=== PATIENT | male | born 1965 | race African-American/Black ===

== ENCOUNTER 2019-05-12 21:02 | Inpatient (IN) | payer BC ==
[~2019-05-12] VITALS: Ht 185.4 cm; Wt 108.9 kg
[2019-05-12 21:05] VITALS: BP_SYST 150
--- NOTE | 2019-05-12 21:13 | NUR ---
Placed in room 1 . Placed on integration project manager, blood pressure machine and pulse oximeter. To gown for exam. Side rails up. Report given to PENG Hwang.
--- NOTE | 2019-05-12 21:15 | NUR ---
patient arrived AOx4 with c/o palpitation since 2pm. patient stated he had similar problem 15 years ago but the work up was normal. patient states he feels it most while laying down and while walking. patient has no other hx. patient denies ETOH, drugs or otherwise. no other complaint or injury at this time.
--- NOTE | 2019-05-12 21:20 | NUR ---
# 18 gauge angiocath placed to Left wrist. Use of asceptic technique. Opsite placed over site. Blood return noted. Blood for lab drawn from site. Flushed with 10 cc of normal saline. No evidence of infiltration noted. Patient tolerated well.
[2019-05-12 21:40] LABS: BASOPHILS # (AUTO) 0.1 K/uL (0.0-0.2); BASOPHILS % (AUTO) 1.2 % (0.0-2.0); EOSINOPHILS # (AUTO) 0.2 K/uL (0.0-0.4); EOSINOPHILS % (AUTO) 2.9 % (0.0-4.0); HEMATOCRIT 45.6 % (36-54); HEMOGLOBIN 15.1 g/dL (14.0-18.0); LYMPHOCYTES # (AUTO) 2.7 K/uL (1.0-5.5); LYMPHOCYTES % (AUTO) 46.6 % (20.5-51.5); MEAN CORPUSCULAR HEMOGLOBIN 27 pg (27-31); MEAN CORPUSCULAR HGB CONC 33 % (32-36); MEAN CORPUSCULAR VOLUME 81 fL (79.0-98.0); MONOCYTES # (AUTO) 0.5 K/uL (0.0-1.0); MONOCYTES % (AUTO) 8.3 % (1.7-9.3); NEUTROPHILS # (AUTO) 2.4 K/uL (1.8-7.7); PLATELET COUNT (AUTO) 160 K/uL (130-430); RED BLOOD CELL COUNT(AUTO) 5.62 MIL/uL (4.2-6.2); RED CELL DISTRIBUTION WIDTH 13.4 % (9.0-15.0); WHITE BLOOD COUNT (AUTO) 5.8 K/uL (4.8-10.8)
--- NOTE | 2019-05-12 21:41 | NUR ---
no medication listed.
[2019-05-12 21:45] LABS: ANION GAP 9 (5-15); CALCIUM 8.6 mg/dL (8.4-11.0); CHLORIDE 107 mmol/L (98-107); CREATININE 1.37 mg/dL (0.55-1.30); GLUCOSE 117 mg/dL (70-99); POTASSIUM 3.5 mmol/L (3.5-5.1); SODIUM SERUM 142 mmol/L (136-145); UREA NITROGEN, BLOOD 16 mg/dL (8-21)
[2019-05-12 21:46] LABS: GFR AFRICAN AMERICAN 70 mL/min (>90)
[2019-05-12 21:53] LABS: BILIRUBIN,URINE NEGATIVE (NEGATIVE); BLOOD, URINE NEGATIVE (NEGATIVE); CLARITY/URINE CLEAR (CLEAR); COLOR,URINE YELLOW (YELLOW); GLUCOSE,URINE NEGATIVE (NEGATIVE); KETONES,URINE NEGATIVE (NEGATIVE); LEUKOCYTE ESTERASE ,URINE NEGATIVE (NEGATIVE); NITRITE, URINE NEGATIVE (NEGATIVE); PROTEIN URINE NEGATIVE (NEGATIVE); UROBILINOGEN,URINE 0.2 (0.2-1.0)
[2019-05-12 22:00] LABS: ALANINE AMINOTRANSFERASE 16 U/L (12-78); ALBUMIN 3.9 g/dL (3.4-4.8); ASPARTATE AMINOTRANSFERASE 15 U/L (10-37); THYROID STIMULATING HORMONE 1.71 uIu/mL (0.36-3.74); TOTAL BILIRUBIN 0.3 mg/dL (0.0-1.0)
[2019-05-12 22:09] LABS: BARBITURATE, URINE NEGATIVE (NEG <=200); BENZODIAZEPINE, URINE NEGATIVE (NEG <=150); CANNABINOID, URINE NEGATIVE (NEG <=50); COCAINE, URINE NEGATIVE (NEG <=150); METHAMPHETAMINES SCREEN,URINE NEGATIVE (NEG <=500); OPIATE, URINE NEGATIVE (NEG <=100); PHENCYCLIDINE SCREEN,URINE NEGATIVE (NEG <=25); UR TRICYCLIC ANTIDEPRESSANTS NEGATIVE (NEG <=300); URINE AMPHETAMINE NEGATIVE (NEG <=500); URINE METHADONE NEGATIVE (NEG <=200); URINE OXYCODONE SCREEN NEGATIVE (NEG <=100); URINE PROPOXYPHENE SCREEN NEGATIVE (NEG <=300)
--- NOTE | 2019-05-12 22:59 | NUR ---
Dr. Hope at bedside
[2019-05-12] MEDS ORDERED: NACL 0.9% 1,000 ML IV ONE (23:00)
--- NOTE | 2019-05-12 23:05 | NUR ---
aPatient will be admitted to care of MD Adán. Admitted to Tele unit. Will go to room 114-b. Belongings list completed. Summary report printed. Report will be given at bedside.
--- NOTE | 2019-05-12 23:14 | NUR ---
ADMIT NOTE Received pt from ER to the floor with a diagnosis of NEW ONSET OF ATRIAL FIB. Admission process initiated. patient oriented to pain management, safety and call light-teach back done.
[2019-05-12 23:26] VITALS: BP_SYST 140
[2019-05-12] MEDS ORDERED: LATA7.5D OP (23:51)
[2019-05-12] MEDS ORDERED: TERB250T50 PO (23:51)
[2019-05-12] MEDS ORDERED: DORZ10DR10 OP (23:51)
--- NOTE | 2019-05-12 23:57 | NUR ---
ADMIT 54 YEAR OLD MALE awake alert AMBULATORY Dx New onset ATRIAL FIBRILLATION , PERSONAL BELONGINGS INVENTORY done family assist @ the bedside on CARDIAC PO DIET , TELEMETRY S.B. @ 54 - 59 BPM procedures explained call diego with patient .
[2019-05-13] VITALS (7 sets, daily range): BP systolic 135–154
[2019-05-13] MEDS ORDERED: ALBUTEROL SULFATE 0.083% 2.5 MG/3 ML VIAL.NEB INH PRN
[2019-05-13] MEDS ORDERED: ONDANSETRON HCL 4 MG/2 ML VIAL IVP PRN
[2019-05-13] MEDS ORDERED: MORPHINE 2 MG/ML INJ. SYRINGE IVP PRN
--- NOTE | 2019-05-13 04:24 | NUR ---
Hourly Rounding patient Resting HOB elevated chest movement symmetrical family @ the bedside no complaints made assist as needed .
[2019-05-13 06:24] LABS: BASOPHILS # (AUTO) 0.1 K/uL (0.0-0.2); BASOPHILS % (AUTO) 1.2 % (0.0-2.0); EOSINOPHILS # (AUTO) 0.2 K/uL (0.0-0.4); EOSINOPHILS % (AUTO) 3.1 % (0.0-4.0); HEMATOCRIT 44.7 % (36-54); HEMOGLOBIN 14.7 g/dL (14.0-18.0); LYMPHOCYTES # (AUTO) 2.3 K/uL (1.0-5.5); LYMPHOCYTES % (AUTO) 44.8 % (20.5-51.5); MEAN CORPUSCULAR HEMOGLOBIN 27 pg (27-31); MEAN CORPUSCULAR HGB CONC 33 % (32-36); MEAN CORPUSCULAR VOLUME 82 fL (79.0-98.0); MONOCYTES # (AUTO) 0.5 K/uL (0.0-1.0); MONOCYTES % (AUTO) 9.5 % (1.7-9.3); NEUTROPHILS # (AUTO) 2.2 K/uL (1.8-7.7); NEUTROPHILS % (AUTO) 41.4 % (40.0-70.0); PLATELET COUNT (AUTO) 157 K/uL (130-430); RED BLOOD CELL COUNT(AUTO) 5.48 MIL/uL (4.2-6.2); RED CELL DISTRIBUTION WIDTH 13.4 % (9.0-15.0); WHITE BLOOD COUNT (AUTO) 5.2 K/uL (4.8-10.8)
[2019-05-13 06:53] LABS: ALBUMIN 3.6 g/dL (3.4-4.8); CALCIUM 8.8 mg/dL (8.4-11.0); CREATININE 1.3 mg/dL (0.55-1.30); POTASSIUM 3.6 mmol/L (3.5-5.1); TOTAL BILIRUBIN 0.5 mg/dL (0.0-1.0)
--- NOTE | 2019-05-13 07:52 | NUR ---
CONSULTATION PAGED REASON FOR CONSULTATION:A-FIB WAS CONSULT CALLED?Y PERSON WHO WAS NOTIFIED:DUDLEY CONSULTING PHYSICIAN:MARA CARTER LAB INTERN SPECIALTY:[facility]ARD[facility] INTERN PHONE NUMBER:[phone] REQUESTING PHYSICIAN:KELLY MORA
--- NOTE | 2019-05-13 08:00 | NUR ---
initial notes rec patient awake, alert with ivl intavt. no infiltration noted. with family at bedside. resp easy and unlabored. denies chest pain at this time. no sob noted. bed to the lowest position and side rails up and locked.dr dang at bedside.
[2019-05-13 08:57] LABS: THYROID STIMULATING HORMONE 0.85 uIu/mL (0.34-4.82)
[2019-05-13] MEDS ORDERED: ASPIRIN 325 MG TABLET PO SCH (09:00)
--- NOTE | 2019-05-13 10:00 | NUR ---
rounds ambulates at intervals and facundo well on the hallway.no chest pain noted.
--- NOTE | 2019-05-13 12:00 | NUR ---
rounds ambulates at intervals. no sob noted. call light within reached.
--- NOTE | 2019-05-13 15:26 | NUR ---
Dr [facility] Late entry due to patient care 1300: MD here to see patient. Per MD from Cardiology standpoint, patient is cleared to be discharge with baby aspirin. Patient denies chest pains or palpitation at this time, NSR on telemetry. Will notify Dr Myers
--- NOTE | 2019-05-13 17:43 | NUR ---
closing notes pt was discharged.id band was removed and ivl. instructed to see dr cardozo in 1 week and to take aspirin 81 mg per day. refused wheelchair and wants to walk . accompanied by family. no osb noted. needs attended and pt is stable.
== END 2019-05-13 17:45 | disposition home or self-care (01) | DRG 310 ==
LOC: SED 21:02 → STU 23:03
PROVIDERS: ADMIT Internal Medicine; ATTEND Internal Medicine
DX: I48.91 Unspecified atrial fibrillation (principal); E86.0 Dehydration; N28.9 Disorder of kidney and ureter, unspecified; I48.92 Unspecified atrial flutter; I10 Essential (primary) hypertension; Z79.899 Other long term (current) drug therapy
CPT/HCPCS: 36415; 71045; 80053; 80061; 80307; 81003; 84443-TC; 84484; 85025; 93005; 93306; 96360; 99285; G0378

== ENCOUNTER 2020-04-28 13:52 | Emergency (ER) | payer BC ==
[~2020-04-28] VITALS: Ht 188 cm; Wt 104.3 kg
[~2020-04-28 13:52] MED LIST: DORZ10DR10 OP; LATA7.5D OP; TERB250T50 PO
[2020-04-28 13:55] VITALS: BP_SYST 143
--- NOTE | 2020-04-28 14:00 | NUR ---
DR WORKMAN IN TO ASSESS, PT CALM, ALERT, NSR ON MONITOR
--- NOTE | 2020-04-28 14:03 | NUR ---
Placed in room 7. Placed on motor coach operator, blood pressure machine and pulse oximeter. To gown for exam. Side rails up. Report given to PENG Lisa.
[2020-04-28] MEDS ORDERED: ASPIRIN 325 MG TABLET PO ONE (14:30)
[2020-04-28 14:38] LABS: BASOPHILS # (AUTO) 0.1 K/uL (0.0-0.2); BASOPHILS % (AUTO) 1.4 % (0.0-2.0); EOSINOPHILS # (AUTO) 0.2 K/uL (0.0-0.4); EOSINOPHILS % (AUTO) 2.8 % (0.0-4.0); HEMATOCRIT 46.1 % (36-54); LYMPHOCYTES # (AUTO) 1.9 K/uL (1.0-5.5); LYMPHOCYTES % (AUTO) 35.1 % (20.5-51.5); MEAN CORPUSCULAR HEMOGLOBIN 26 pg (27-31); MEAN CORPUSCULAR HGB CONC 33 % (32-36); MEAN CORPUSCULAR VOLUME 80 fL (79.0-98.0); MONOCYTES # (AUTO) 0.6 K/uL (0.0-1.0); MONOCYTES % (AUTO) 11.4 % (1.7-9.3); NEUTROPHILS # (AUTO) 2.7 K/uL (1.8-7.7); NEUTROPHILS % (AUTO) 49.3 % (40.0-70.0); PLATELET COUNT (AUTO) 169 K/uL (130-430); RED BLOOD CELL COUNT(AUTO) 5.76 MIL/uL (4.2-6.2); RED CELL DISTRIBUTION WIDTH 13.7 % (9.0-15.0); WHITE BLOOD COUNT (AUTO) 5.4 K/uL (4.8-10.8)
[2020-04-28 14:47] LABS: PROTHROMBIN TIME 10.4 SECS (9.5-12.5)
[2020-04-28 14:48] LABS: ALBUMIN 3.7 g/dL (3.4-4.8); CREATININE 1.36 mg/dL (0.55-1.30); POTASSIUM 3.6 mmol/L (3.5-5.1); TOTAL BILIRUBIN 0.6 mg/dL (0.0-1.0)
--- NOTE | 2020-04-28 15:19 | NUR ---
NSR ON MONITOR NO ECTOPY, RESP UNLABORED, SKIN WARM AND DRY
[2020-04-28 15:37] VITALS: BP_SYST 148
== END 2020-04-28 15:37 | disposition home or self-care (01) ==
LOC: SED 13:52
DX: R07.89 Other chest pain (principal); Z79.899 Other long term (current) drug therapy
CPT/HCPCS: 36415; 71045; 80053; 83880; 84484; 85025; 85379; 85610-TC; 85730-TC; 93005; 99284

== ENCOUNTER 2023-05-05 01:57 | Emergency (ER) | payer BC ==
[~2023-05-05] VITALS: Ht 185.4 cm; Wt 106.6 kg
[~2023-05-05 01:57] MED LIST changes: -TERB250T50 PO; +TERB250T89 PO
[2023-05-05 02:08] VITALS: BP_SYST 158; PULSE 64; RESP 16; TEMP 97.3; O2SAT 97
[2023-05-05 03:50] VITALS: BP_SYST 158; PULSE 64; RESP 16; TEMP 97.3; O2SAT 97
== END 2023-05-05 03:49 | disposition home or self-care (01) ==
LOC: SED 01:57
DX: F41.9 Anxiety disorder, unspecified (principal); R68.2 Dry mouth, unspecified; Z79.899 Other long term (current) drug therapy
CPT/HCPCS: 93005; 99283